=== PATIENT | female | born 2000 | race African-American/Black ===

== ENCOUNTER 2018-10-22 09:45 | Emergency (ER) | payer BC ==
[~2018-10-22] VITALS: Ht 172.7 cm; Wt 70.0 kg
[2018-10-22 10:01] VITALS: BP 115/82
[2018-10-22] MEDS ORDERED: BACITRACIN ZINC OINT UDPKT TOP ONE (11:15)
== END 2018-10-22 11:07 | disposition home or self-care (01) ==
LOC: ER 09:45
DX: S61.227A Laceration with foreign body of left little finger without damage to nail, initial encounter (principal); F12.10 Cannabis abuse, uncomplicated; F17.200 Nicotine dependence, unspecified, uncomplicated; Y08.89XA Assault by other specified means, initial encounter; Y93.89 Activity, other specified; Y92.89 Other specified places as the place of occurrence of the external cause; Y99.8 Other external cause status
CPT/HCPCS: 10120; 99282; 99284

== ENCOUNTER 2019-01-18 07:16 | Emergency (ER) | payer BC ==
[~2019-01-18] VITALS: Ht 170.2 cm; Wt 65.0 kg
[2019-01-18] MEDS ORDERED: ONDANSETRON HCL 4MG/2ML INJ IV STA (07:57)
[2019-01-18] MEDS ORDERED: SODIUM CHLORIDE 0.9% 1,000 ML IV ONE (07:57)
[2019-01-18] MEDS ORDERED: KETOROLAC 15MG/ML VIAL IV ONE (08:15)
[2019-01-18] MEDS ORDERED: FAMOTIDINE 20MG/2ML VIAL IV ONE (08:15)
[2019-01-18 08:39] LABS: BASOPHILS % 1.2 % (0.0-2.0); EOSINOPHILS % 1.8 % (0.0-5.0); HEMATOCRIT. 36.2 % (36.0-48.0); HEMOGLOBIN. 12.1 g/dL (12.0-16.0); LYMPHOCYTES % 31.2 % (20.0-50.0); MEAN CORPUSCULAR HEMOGLOBIN 30.2 pg (28.0-32.0); MEAN CORPUSCULAR VOLUME 90.2 fL (81.0-99.0); MEAN PLATELET VOLUME 7.9 fl (7.4-10.4); MONOCYTES % 6.5 % (2.0-8.0); NEUTROPHILS % 59.3 % (40.0-76.0); PLATELET 267 x1000/uL (130-400); RED BLOOD CELL COUNT 4.01 mill/uL (4.2-5.4); RED CELL DISTRIBUTION WIDTH 13.2 % (11.6-14.6)
[2019-01-18 08:43] VITALS: BP 116/70
[2019-01-18 08:43] LABS: CHLORIDE 105 mEq/L (98-107)
== END 2019-01-18 10:00 | disposition home or self-care (01) ==
LOC: ER 07:16
DX: R11.2 Nausea with vomiting, unspecified (principal); R10.13 Epigastric pain; F12.10 Cannabis abuse, uncomplicated
CPT/HCPCS: 36415; 80053; 83690; 85025; 96361; 96374; 96375; 99283; J1885; J2405; J3490; J7030

== ENCOUNTER 2019-03-02 19:44 | Emergency (ER) | payer BC ==
[~2019-03-02] VITALS: Ht 172.7 cm; Wt 73.0 kg
[2019-03-02 20:00] VITALS: BP 105/51
== END 2019-03-03 10:59 | disposition home or self-care (01) ==
LOC: ER 19:44
DX: S90.821A Blister (nonthermal), right foot, initial encounter (principal); F17.200 Nicotine dependence, unspecified, uncomplicated; X58.XXXA Exposure to other specified factors, initial encounter; Y93.01 Activity, walking, marching and hiking; Y92.9 Unspecified place or not applicable
CPT/HCPCS: 81025; 99283

== ENCOUNTER 2019-05-03 18:25 | Emergency (ER) | payer BC ==
[~2019-05-03] VITALS: Ht 172.7 cm; Wt 73.0 kg
[2019-05-03] MEDS ORDERED: IBUPROFEN 600MG TABLET PO ONE (19:00)
[2019-05-03] MEDS ORDERED: NEOMYCIN-POLYMYXIN-HYDROCORTISONE 1% OTIC SUSP 10ML RIGHT EAR ONE (19:00)
[2019-05-03 19:28] VITALS: BP 96/59
== END 2019-05-03 19:28 | disposition home or self-care (01) ==
LOC: ER 18:25
DX: J02.8 Acute pharyngitis due to other specified organisms (principal); B34.9 Viral infection, unspecified; R51 Headache; F12.10 Cannabis abuse, uncomplicated
CPT/HCPCS: 99283